=== PATIENT | male | born 1940 | race Hispanic/Latino ===

== ENCOUNTER → 2020-05-31 | Day surgery (SDC) | payer MEDICARE ==
[2020-05-30 10:37] LABS: BASOPHILS # (AUTO) 0.1 (0.0-0.1); BASOPHILS % 0.7 % (0.0-1.0); EOSINOPHILS # (AUTO) 0.4 (0.0-0.4); EOSINOPHILS % 5.9 % (0.0-6.0); HEMATOCRIT 36.8 % (38.2-49.6); HEMOGLOBIN 12.3 g/dL (14.0-18.0); LYMPHOCYTES # (AUTO) 1.9 (1.0-3.2); LYMPHOCYTES % 25.3 % (18.0-39.1); MEAN CORPUSCULAR HEMOGLOBIN 29.9 pg (28-32); MEAN CORPUSCULAR HGB CONC 33.4 g/dL (31-35); MEAN CORPUSCULAR VOLUME 89.5 fL (81-99); MONOCYTES # (AUTO) 0.6 (0.2-0.8); MONOCYTES % 8.6 % (4.4-11.3); NEUTROPHILS # (AUTO) 4.4 (2.1-6.9); NEUTROPHILS % 59.2 % (38.7-80.0); PLATELET COUNT 164 x10e3/uL (140-360); RED BLOOD COUNT 4.11 x10e6/uL (4.3-5.7); RED CELL DISTRIBUTION WIDTH 13.1 % (11.7-14.4)
[2020-05-30 10:55] LABS: ALBUMIN 3.4 g/dL (3.5-5.0); ANION GAP 12.8 mmol/L (8-16); CALCIUM 8.8 mg/dL (8.4-10.2); CREATININE, SERUM 1.62 mg/dL (0.72-1.25); POTASSIUM 3.8 mmol/L (3.5-5.1)
[~2020-05-31] VITALS: Ht 157.5 cm; Wt 61.2 kg
[2020-05-31] VITALS (12 sets, daily range): BP systolic 150–186; BP diastolic 58–99
[~2020-05-31] MED LIST: ALPRAZOLAM 0.5 MG TAB ONE; ASPIRIN 325 MG TAB ONE; ASPIRIN81 MG PO; ATORVASTATIN CA20 MG PO; CALCITRIOL0.25 MCG PO; DIPHENHYDRAMINE HCL 25 MG CAP ONE; FENTANYL CITRATE/PF 100MCG/2 ML INJ ONE; GLIMEPIRIDE2 MG PO; HEPARIN SOD/SOD CHLORIDE 2,000 ML ONE; IOPAMIDOL 300MG/ML 100 ML INFUS..BTL IV ONE; LABETALOL HCL 20 ML ONE; LIDOCAINE HCL 2% LOCAL 20 ML VIAL ONE; LOSARTAN-HCTZ1 EAC1 PO; MIDAZOLAM HCL 2 MG/2 ML VIAL ONE; PRASUGREL 10 MG TAB ONE; PROTAMINE SULFATE 10 MG/ML 5 ML VIAL ONE; SODIUM CHLORIDE 0.9% 1000ML 1,000 ML ONE; [UNRECOGNIZED DRUG - OTHER] SC
== END | disposition home or self-care (01) ==
LOC: CATH LAB 12:52
PROVIDERS: ATTEND Internal Medicine Interventional Cardiology
DX: I70.249 Atherosclerosis of native arteries of left leg with ulceration of unspecified site (principal); I87.2 Venous insufficiency (chronic) (peripheral); I10 Essential (primary) hypertension; E78.00 Pure hypercholesterolemia, unspecified; E13.69 Other specified diabetes mellitus with other specified complication; Z01.812 Encounter for preprocedural laboratory examination; Z20.828 Contact with and (suspected) exposure to other viral communicable diseases; Z79.82 Long term (current) use of aspirin; Z79.4 Long term (current) use of insulin; Z68.32 Body mass index [BMI] 32.0-32.9, adult; Z82.49 Family history of ischemic heart disease and other diseases of the circulatory system
CPT/HCPCS: 36415; 37224; 37228; 80053; 85025; C1760; C1769; C1887; C2623; J2001; J2250; J2720; J3010; J3490; J7030; Q9967; U0002; 36247; 37232; 75630; 99152; 99153

== ENCOUNTER → 2020-07-25 | Day surgery (SDC) | payer MEDICARE ==
[2020-07-23 10:08] LABS: BASOPHILS # (AUTO) 0.1 (0.0-0.1); BASOPHILS % 0.8 % (0.0-1.0); EOSINOPHILS # (AUTO) 0.4 (0.0-0.4); HEMATOCRIT 38.8 % (38.2-49.6); HEMOGLOBIN 13.4 g/dL (14.0-18.0); LYMPHOCYTES % 26.8 % (18.0-39.1); MEAN CORPUSCULAR HEMOGLOBIN 29.6 pg (28-32); MEAN CORPUSCULAR HGB CONC 34.5 g/dL (31-35); MEAN CORPUSCULAR VOLUME 85.8 fL (81-99); MONOCYTES # (AUTO) 0.7 (0.2-0.8); MONOCYTES % 8.9 % (4.4-11.3); NEUTROPHILS # (AUTO) 4.3 (2.1-6.9); NEUTROPHILS % 58.2 % (38.7-80.0); PLATELET COUNT 196 x10e3/uL (140-360); RED BLOOD COUNT 4.52 x10e6/uL (4.3-5.7); RED CELL DISTRIBUTION WIDTH 12.3 % (11.7-14.4)
[2020-07-23 10:28] LABS: ALBUMIN 3.8 g/dL (3.5-5.0); ALBUMIN/GLOBULIN RATIO 0.9 (0.8-2.0); ANION GAP 17.1 mmol/L (8-16); CREATININE, SERUM 2.48 mg/dL (0.72-1.25); POTASSIUM 3.1 mmol/L (3.5-5.1)
[~2020-07-25] VITALS: Ht 157.5 cm; Wt 70.3 kg
[2020-07-25] VITALS (8 sets, daily range): BP systolic 102–124; BP diastolic 53–77
[~2020-07-25] MED LIST changes: -ASPIRIN 325 MG TAB ONE; +HEPARIN SOD (PORCINE) 1000 UNIT/ML 30ML ONE; -IOPAMIDOL 300MG/ML 100 ML INFUS..BTL IV ONE; +IOPAMIDOL 370 MG/ML 200 ML INFUS..BTL INJ ONE; -LABETALOL HCL 20 ML ONE; +LANTUS100 UNIT/1 SQ; -PRASUGREL 10 MG TAB ONE; -PROTAMINE SULFATE 10 MG/ML 5 ML VIAL ONE; +VERAPAMIL HCL 2.5 MG/ML 2 ML VIAL ONE
== END | disposition home or self-care (01) ==
LOC: CATH LAB 10:24
PROVIDERS: ATTEND Internal Medicine Interventional Cardiology
DX: I25.118 Atherosclerotic heart disease of native coronary artery with other forms of angina pectoris (principal); R94.39 Abnormal result of other cardiovascular function study; I70.203 Unspecified atherosclerosis of native arteries of extremities, bilateral legs; I87.2 Venous insufficiency (chronic) (peripheral); E13.69 Other specified diabetes mellitus with other specified complication; I10 Essential (primary) hypertension; E78.00 Pure hypercholesterolemia, unspecified; Z01.812 Encounter for preprocedural laboratory examination; Z20.822 Contact with and (suspected) exposure to COVID-19; Z79.82 Long term (current) use of aspirin; Z79.4 Long term (current) use of insulin; Z79.02 Long term (current) use of antithrombotics/antiplatelets; Z68.31 Body mass index [BMI] 31.0-31.9, adult; Z82.49 Family history of ischemic heart disease and other diseases of the circulatory system
CPT/HCPCS: 36415; 76937; 80053; 85025; 93458; C1769 ×2; C1887; J1644; J2001; J2250; J3010; J7030; Q9967; U0002; 99152